=== PATIENT | male | born 1955 | race Caucasian/White ===

== ENCOUNTER 2017-07-30 13:00 | Emergency (ER) | payer BC ==
[~2017-07-30] VITALS: Ht 170.2 cm; Wt 74.9 kg
[2017-07-30 13:06] VITALS: BP 160/97; PULSE 91; TEMP 37; O2SAT 96; Ht 170.2 cm; Wt 74.9 kg
--- NOTE | 2017-07-30 17:33 | EMERGENCY ROOM VISIT NOTE ---
ED Visit Note First contact with patient: 13:08 CHIEF COMPLAINT: Tick bite. HISTORY OF PRESENT ILLNESS: Mr. Skelton is a 62-year-old white male who ambulates into the ED complaining of a tick bite on the right lower leg. Patient reports last night before bedtime he noted some pain on the right lower leg but did not inspect the area. Today when he woke up this morning the pain was still there and when he was showering he felt something on his leg. He looked at the area and noted a non-engorged tick in his skin. [place] and checks his self every night and the night before last he did not note any tick bites on his legs. He reports this tick was easily removed and his pain has subsequently resolved. He presents to the ED today for check of his wound and to make sure that he was able to remove all of the tick. Currently he is asymptomatic and denies any associated fevers, chills, sweats, skin eruptions, skin color changes, joint pains, chest pains, decreased appetite , nausea/vomiting, headaches. REVIEW OF SYSTEMS: As previously noted in History of Present Illness; at least 8 body systems are reviewed with the patient and found to be negative unless noted above otherwise. PMH: Psoriasis, unspecified left arm surgery. CURRENT MEDICATION: Patient denies. ALLERGIES TO MEDICATION: Patient denies. SOCIAL HISTORY: Patient is currently employed; he feels safe in his home environment; he admits to tobacco and alcohol use. TETANUS IMMUNIZATION STATUS: Patient reports up-to-date. PHYSICAL EXAM: Vital Signs: Date Time Temp Pulse Resp B/P (MAP) Pulse Ox O2 Delivery O2 Flow Rate FiO2 07/30/17 13:06 37.0 91 18 160/97 96 Room Air General: 62-year-old white male in no acute distress, nontoxic-appearing, afebrile and hemodynamically stable. Neurological: Awake, alert and oriented 3. Answering questions appropriately and following commands. Skin: Warm, dry and pink. On the anterior aspect of the right lower leg patient has a small area of erythema and ecchymosis. When examined no tick remnants are present. There is no lymphangitis and the skin does not appear cellulitic. ED COURSE: Patient is assessed as noted above. Patient's medication list was reviewed. Patient was educated about today's findings and instructed on his treatment plan ; he verbalized understanding and agreement with this plan. CLINICAL IMPRESSION: Tick bite. DISPOSITION: Patient discharged home in stable condition; prior to departure he was reassessed and remained pain and asymptomatic. PLAN: Wound care, signs of infection and signs of Lyme's disease were discussed with the patient. Patient was encouraged to follow-up with his PCP or return to the ED for any signs of infection or Lyme's disease.
== END 2017-07-30 13:47 | disposition home or self-care (01) ==
LOC: C.EDB 13:02 → C.EDD 13:47
DX: S80.861A Insect bite (nonvenomous), right lower leg, initial encounter (principal); W57.XXXA Bitten or stung by nonvenomous insect and other nonvenomous arthropods, initial encounter; Z72.0 Tobacco use

== ENCOUNTER 2020-04-19 15:22 | Observation (INO) ==
[2020-04-19] MEDS: SODIUM CHLORIDE 0.9% 1000ML 1,000 ML IV SCH (16:29)
[2020-04-19 16:49] LABS: Basophils # (auto) 0.04 K/uL (0-0.2); Basophils % (auto) 0.5 %; Eosinophils # (auto) 0.09 K/uL (0-0.5); Eosinophils % (auto) 1.2 %; Hematocrit (blood only) 50.1 % (42-52); Hemoglobin 17.3 g/dL (14.0-18.0); Immature Granulocytes # (auto) 0.01 K/uL (0.00-0.02); Immature Granulocytes % (auto) 0.1 %; Lymphocytes # (auto) 1.44 K/uL (1.2-3.4); Lymphocytes % (auto) 19.1 %; Mean Corpuscular Hgb Conc 34.5 g/dL (32-36); Mean Corpuscular Volume 95.4 fL (80-100); Mean Platelet Volume 10.8 fL (7.4-10.4); Monocytes % (auto) 9.3 %; Neutrophils # (auto) 5.26 K/uL (1.4-6.5); Neutrophils % (auto) 69.8 %; Platelet Count 201 K/uL (130-400); RDW Coefficient of Variation 12.8 % (11.5-14.5); RDW Standard Deviation 44.5 fL (36.4-46.3); Red Blood Count 5.25 M/uL (4.7-6.1); White Blood Count 7.54 K/uL (4.8-10.8)
[2020-04-19 17:05] LABS: Alanine Aminotransferase 32 U/L (12-78); Aspartate Aminotransferase 16 U/L (15-37); BUN Creatinine Ratio 12.5 (10-20); Blood Urea Nitrogen 17 mg/dl (7-18); Calcium 8.8 mg/dl (8.5-10.1); Carbon Dioxide 28 mmol/L (21-32); Chloride 109 mmol/L (98-107); Creatinine Clr Calc Pharmacy 52.8 ml/min; Est GFR (African American) 64.9; Glucose 94 mg/dl (70-99); Magnesium 2.5 mg/dl (1.8-2.4); Potassium 4.1 mmol/L (3.5-5.1); Sodium 140 mmol/L (136-145)
[2020-04-19 17:06] LABS: Partial Thromboplastin Ratio 0.9; Partial Thromboplastin Time 25.6 Seconds (21.0-31.0); Prothrombin Time 10.5 Seconds (9.0-12.0)
[2020-04-19 17:10] LABS: Albumin Globulin Ratio 1.1 (0.9-2); Alkaline Phosphatase 71 U/L (45-117); Bilirubin,Total 0.6 mg/dl (0.2-1); Globulin 3.7 gm/dl (2.5-4.0); Total Protein 7.7 gm/dl (6.4-8.2); Troponin I < 0.015 ng/ml (0-0.045)
[2020-04-19] MEDS ORDERED: LABETALOL HCL IV 5 MG/ML 20ML IV STA (17:14)
[2020-04-19] MEDS ORDERED: OPTIRAY 320 125ml IV ONE (18:06)
--- NOTE | 2020-04-19 18:19 | CT Scan Report ---
CT OF THE HEAD WITHOUT CONTRAST CLINICAL HISTORY: Stroke Like Symptoms COMPARISON STUDY: No previous studies for comparison. CT DOSE: TECHNIQUE: Helical axial images of the head were obtained without IV contrast. Automated exposure con trol was utilized for the study. A dose lowering technique was utilized adhering to the principles o f ALARA. FINDINGS: No acute intracranial hemorrhage, midline shift or mass effect is present. The ventricular system is unremarkable. Mild white matter hypodensities favor small vessel disease. The basal cistern s are patent. No extra-axial collections are present. There are no findings to suggest acute dural si nus thrombosis or acute territorial infarct. No significant calvarial abnormalities are present. Visu alized portions of the sinuses and mastoid air cells are clear. IMPRESSION: No acute intracranial findings. ACT 112: Negative or not required by law. Electronically signed by: Geovany Hernández M.D. 04/19/2020 6:17 PM
--- NOTE | 2020-04-19 18:27 | CT Scan Report ---
CT ANGIOGRAPHY OF THE NECK WITH CONTRAST CLINICAL HISTORY: Stroke Like Symptoms COMPARISON STUDY: No previous studies for comparison. Technique: CT angiography of the carotid and vertebral arteries was obtained using UMicIt 320 IV and 3D reconstruction on an independent workstation. NASCET criteria was utilized. Automated exposure c ontrol was utilized for the study. A dose lowering technique was utilized adhering to the principles of ALARA. CT DOSE: 1094.39 mGy.cm Findings: The bilateral common carotid and cervical internal carotid arteries are patent. There is mi ld plaque within the proximal right internal carotid artery. This results in no stenosis. No dissecti on within the major vessels of the neck is noted. The left vertebral artery is dominant. There is mod erate to severe stenosis at the origin of the left vertebral artery. 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 This vessel is patent. CTA of the head will be reported separately. Lung apices are clear. There is no cervical lymphadenopathy. No acute cervical spine fracture is present. IMPRESSION: 1. No stenosis within the bilateral common carotid and cervical internal carotid arteries. 2. Moderate to severe stenosis at the origin of the left vertebral artery. Dominant left vertebral ar annie. Diminutive right vertebral artery. ACT 112: Negative or not required by law. Electronically signed by: Geovany Hernández M.D. 04/19/2020 6:26 PM
--- NOTE | 2020-04-19 18:34 | CT Scan Report ---
CTA ANGIOGRAPHY OF THE HEAD CLINICAL HISTORY: Stroke Like Symptoms. COMPARISON STUDY: No previous studies for comparison. TECHNIQUE: Helical axial images of the head were obtained following uneventful intravenous administr ation of 117 cc of Optiray 320. Sagittal and coronal reconstructions were viewed as well as maximal i ntensity projections on an independent 3-D workstation. Automated exposure control was utilized for the study. A dose lowering technique was utilized adhering to the principles of ALARA. FINDINGS: The bilateral M1 and M2 segments are patent. The bilateral A1 segments are patent. There is multifocal occlusion of the right A2 segment. There is moderate to severe stenosis of the left A2 se gment. The posterior circulation is largely supplied by the anterior circulation with persisten ce of the left posterior cerebral artery and a large right posterior communicating artery. Note is ma de of occlusion with distal reconstitution versus severe short segment stenosis with of the right pos terior cerebral artery shown on axial image 78 of 250. In addition, there is moderate stenosis of the more proximal aspect of this vessel. Note is made of severe stenosis of the left posterior cerebral artery. No acute intracranial hemorrhage is present. Brain volume is normal. Ventricular system is no rmal. Basilar cisterns are patent. 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 There is no in tracranial aneurysm. There is moderate stenosis of the basilar artery. IMPRESSION: 1. 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 This finding is age indeterminate and may be acute. 2. Occlusion versus severe short segment stenosis of the right posterior cerebral artery. Severe sten osis of the left posterior cerebral artery. 3. Moderate stenosis of the basilar artery. ACT 112: Negative or not required by law. Electronically signed by: Geovany Hernández M.D. 04/19/2020 6:33 PM
[2020-04-19] MEDS ORDERED: ASPIRIN CHEW 324 MG PO STA (19:00)
--- NOTE | 2020-04-19 20:05 | History & Physical Report ---
Date of Service April 19, 2020 Assessment & Plan (1) Fall: (2) Left leg weakness: 65-year-old male with a history of ORIF and high cholesterol levels seen in the emergency department for isolated left leg weakness and admitted for stroke work-up. 1. Left leg weakness/stroke work-up Head and neck CTA showing multiple areas of stenosis in the anterior and posterior cerebral arteries and vertebral and basilar arteries. MRI head without contrast pending to evaluate for central area of stroke not apparent on CTs. Patient most likely has peripheral arterial disease and could have stenosis or blockage of left iliac versus femoral arteries. Consider CTA left lower extremity 24 hours after head/neck CTA. Pulses poor but intact at feet bilaterally Cholesterol elevated at 271, triglycerides elevated at 289. Patient started on 40 mg atorvastatin and daily aspirin. A1c pending Fall precautions given left leg weakness Hypertension Status post 10 mg IV labetalol in ED Allow for permissive hypertension in setting of high-grade stenosis of multiple cerebral arteries No concern for hypertensive urgency at this time BMP in a.m. DVT prophylaxis: Subcu Lovenox FEN/GI: N.p.o. pending MRI read CODE STATUS: Full code Dispo: MedSurg; likely home with home health pending PT History of Present Illness Patient is a 65-year-old male with past medical history of ORIF presented to the emergency department this evening with complaints of left lower extremity weakness and fall. He states that this morning he felt like his left leg was not moving as well as his right and felt "heavier" than the other one. States that he was trying to walk he would frequently run into the edges of tables of the bed with his left side and when standing would lean towards the left because it felt unstable. He did note that while he was with one of his coworkers he fell to the left and did not hit his head was able to catch himself on his hands. He denies any previous episodes of isolated leg weakness, heart attack, stroke, TIA. He states he has gotten yearly blood work with his PCP for his job but has never been on medication for high blood pressure, diabetes or high cholesterol. He does note that his cholesterol was elevated last time he had it checked. Patient denies a history of cigarette or cigar use but does say that he has chewed tobacco since he was very young. Family history significant for father and grandfather who had strokes and heart disease. Father had a heart attack at the age of 42. Patient also has a niece appear to have early onset uncontrolled diabetes and from it at the age of 20. Patient denies any chest pressure or chest tightness at rest or with exertion. He states that when he is running up and down the stairs he will get somewhat short of breath but does not experience any chest pain or chest tightness during those episodes. ED course significant for receiving 10 mg of IV labetalol for elevated blood pressures and a one-time 325 mg dose of aspirin. CT negative for any acute intracranial abnormalities. Head and neck CTA significant for moderate to severe left vertebral artery stenosis, multifocal stenosis of the right anterior cerebral artery, occlusion versus stenosis of the right posterior cerebral artery, severe stenosis of the left posterior cerebral artery, moderate stenosis of the basilar artery. MRI without contrast of head pending. Primary Care Provider: Dm Olson, ALEKSANDAR, MARIN Allergies Allergy/AdvReac Type Severity Reaction Status Date / Time No Known Allergies Allergy Unknown NONE Unverified 04/19/20 19:16 Home Medications Medication Instructions Recorded Confirmed Type No Known Home Medications 03/06/19 04/19/20 History amlodipine 5 mg PO DAILY #30 tab 04/20/20 Rx aspirin 81 mg PO QAM #30 tab 04/20/20 Rx atorvastatin 40 mg PO QAM #30 tab 04/20/20 Rx Past Med/Surg History Surgical History History of open reduction and internal fixation (ORIF) procedure humerus Family History (Updated 04/19/20 @ 20:53 by Moriah Mabry MD) Father Obesity Heart disease Stroke Myocardial infarction Peripheral vascular disease Grandfather Peripheral vascular disease Social History (Updated 04/19/20 @ 20:53 by Moriah Mabry MD) Smoking Status: Never smoker Tobacco Type: Smokeless Tobacco (Dip or Chew) Age Started Using Tobacco: 12; Second Hand Exposure: No; Hx Alcohol Use: Yes Alcohol type: beer Hx Substance Use: No Preferred Language: Kinyarwanda Communication Ability: Effective Block Engraver Required: No Beliefs That Will Affect Care: None marital status: Current Living Situation: Spouse Feels Safe at Home: Yes caffeine: Yes Assistive Devices: Glasses Review of Systems Constitutional: no fever, no chills and no body aches Respiratory: no cough, no dyspnea and no pain on inspiration Cardiovascular: no chest pain, no chest pain with activity, no dyspnea on exertion, no palpitations, no lightheadedness, no syncope, no edema and no claudication Gastrointestinal: no abdominal pain, no nausea, no vomiting, no cramping, no constipation and no diarrhea/loose stools Musculoskeletal: + muscle weakness (left lower extremity) Neurologic: + gait abnormality, + falls, + localized weakness and + numbness; no tingling, no paresthesia and no radiating pain Physical Exam Physical Exam: Constitutional: in no apparent distress, laying comfortably in bed,. not ill appearing Eyes: EOMI, pupils equal and reactive bilaterally, no scleral icterus Cardiac: RRR, no murmurs, gallops or rubs. Normal S1, S2 Pulm: CTA BL, no wheezes, rhonchi, crackles or rubs, moving air well throughout both lungs on room air Abd: soft, nontender, nondistended, hyperactive bowel sounds, no rebound or guarding Extremities: no edema, 1+ L PT pulse, poor DP pulse. 1+ DP pulse on right, poor PT pulse. Neuro: no focal deficits, moving all 4 limbs, A&Ox3, strength 5/5 at all major joints. - Cranial Nerve exam Pupils equally responsive to light bilaterally extraocular muscle movement intact w/o focal weakness or abnormality facial sensation intact, able to close eyes and puff cheeks against resistance mildly decreased hearing in L ear otherwise hearing intact able to swallow w/o issue, shrug shoulders and uvula midline. Results & Data Results & Data ([facility]) Vital Signs (Past 12 Hours) Vital Signs Temp Pulse Pulse Resp BP BP Pulse Ox 04/19/20 19:40 94 H 16 167/102 H 98 04/19/20 18:00 78 21 182/112 H 98 04/19/20 17:50 75 22 98 04/19/20 17:40 77 22 98 04/19/20 17:31 74 21 98 04/19/20 17:30 72 22 176/111 H 98 04/19/20 17:23 76 22 185/137 H 99 04/19/20 17:20 76 22 98 04/19/20 17:11 74 14 183/124 H 99 04/19/20 17:10 77 75 19 183/124 H 99 04/19/20 17:00 76 22 04/19/20 16:50 79 22 04/19/20 16:40 79 16 04/19/20 16:33 94 H 21 211/124 H 04/19/20 15:28 36.5 C 89 20 193/109 H 99 Laboratory Results WBC 7.54 K/uL (4.8-10.8) 04/19/20 16:32 RBC 5.25 M/uL (4.7-6.1) 04/19/20 16:32 Hgb 17.3 g/dL (14.0-18.0) 04/19/20 16:32 Hct 50.1 % (42-52) 04/19/20 16:32 MCV 95.4 fL (80-100) 04/19/20 16:32 MCH 33.0 pg (25-34) 04/19/20 16:32 MCHC 34.5 g/dL (32-36) 04/19/20 16:32 RDW Std Deviation 44.5 fL (36.4-46.3) 04/19/20 16:32 RDW Coeff of Debbie 12.8 % (11.5-14.5) 04/19/20 16:32 Plt Count 201 K/uL (130-400) 04/19/20 16:32 MPV 10.8 fL (7.4-10.4) H 04/19/20 16:32 Immature Gran % (Auto) 0.1 % 04/19/20 16:32 Neut % (Auto) 69.8 % 04/19/20 16:32 Lymph % (Auto) 19.1 % 04/19/20 16:32 Ashe % (Auto) 9.3 % 04/19/20 16:32 Eos % (Auto) 1.2 % 04/19/20 16:32 Baso % (Auto) 0.5 % 04/19/20 16:32 Neut # (Auto) 5.26 K/uL (1.4-6.5) 04/19/20 16:32 Lymph # (Auto) 1.44 K/uL (1.2-3.4) 04/19/20 16:32 Ashe # (Auto) 0.70 K/uL (0.11-0.59) H 04/19/20 16:32 Eos # (Auto) 0.09 K/uL (0-0.5) 04/19/20 16:32 Baso # (Auto) 0.04 K/uL (0-0.2) 04/19/20 16:32 Immature Gran # (Auto) 0.01 K/uL (0.00-0.02) 04/19/20 16:32 PT 10.5 Seconds (9.0-12.0) 04/19/20 16:32 INR 1.0 (0.9-1.1) 04/19/20 16:32 APTT 25.6 Seconds (21.0-31.0) 04/19/20 16:32 PTT Ratio 0.9 04/19/20 16:32 Sodium 140 mmol/L (136-145) 04/19/20 16:32 Potassium 4.1 mmol/L (3.5-5.1) 04/19/20 16:32 Chloride 109 mmol/L (98-107) H 04/19/20 16:32 Carbon Dioxide 28 mmol/L (21-32) 04/19/20 16:32 Anion Gap 3.0 (3-11) 04/19/20 16:32 BUN 17 mg/dl (7-18) 04/19/20 16:32 Creatinine 1.34 mg/dl (0.6-1.4) 04/19/20 16:32 Est Cr Clr Drug Dosing 52.8 ml/min 04/19/20 16:32 Est GFR ( Amer) 64.9 04/19/20 16:32 Est GFR (Non-Af Amer) 56.0 04/19/20 16:32 BUN/Creatinine Ratio 12.5 (10-20) 04/19/20 16:32 Glucose 94 mg/dl (70-99) 04/19/20 16:32 Calcium 8.8 mg/dl (8.5-10.1) 04/19/20 16:32 Magnesium 2.5 mg/dl (1.8-2.4) H 04/19/20 16:32 Total Bilirubin 0.6 mg/dl (0.2-1) 04/19/20 16:32 AST 16 U/L (15-37) 04/19/20 16:32 ALT 32 U/L (12-78) 04/19/20 16:32 Alkaline Phosphatase 71 U/L (45-117) 04/19/20 16:32 Troponin I < 0.015 ng/ml (0-0.045) 04/19/20 16:32 Total Protein 7.7 gm/dl (6.4-8.2) 04/19/20 16:32 Albumin 4.0 gm/dl (3.4-5.0) 04/19/20 16:32 Globulin 3.7 gm/dl (2.5-4.0) 04/19/20 16:32 Albumin/Globulin Ratio 1.1 (0.9-2) 04/19/20 16:32 Triglycerides 289 mg/dl (0-150) H 04/19/20 16:32 Cholesterol 271 mg/dl (0-200) H 04/19/20 16:32 LDL Cholesterol, Calc 149 mg/dl 04/19/20 16:32 VLDL Cholesterol, Calc 58 mg/dl 04/19/20 16:32 HDL Cholesterol 64 mg/dl 04/19/20 16:32 Cholesterol/HDL Ratio 4 04/19/20 16:32 COVID-19 Eval Order Cov[facility] 04/19/20 17:12 SARS-CoV-2, RNA, NAAT NEGATIVE (NEGATIVE) 04/19/20 17:12 CT head:No acute intracranial findings. CTA head: 1. 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 This finding is age indeterminate and may be acute. 2. Occlusion versus severe short segment stenosis of the right posterior cerebral artery. 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 3. Moderate stenosis of the basilar artery. CTA neck: 1. No stenosis within the bilateral common carotid and cervical internal carotid arteries. 2. Moderate to severe stenosis at the origin of the left vertebral artery. Dominant left vertebral artery. Diminutive right vertebral artery. Supervising Physician Co-Signing Physician Notes Attending addendum: I have physically seen this patient, have supervised the medical residents activities, and agree with the H&P unless as otherwise noted. Assessment and Plan: Left leg weakness/strokelike symptoms- CT head negative for acute stroke. CTA head neck with significant narrowings of right anterior cerebral and posterior cerebral arteries, left posterior cerebral artery and moderate stenosis of basilar artery. Admit to monitored bed with CVA without TPA protocol order set. Order MRI brain without contrast Order echocardiogram Aspirin 81 mg daily Consult PT/OT/neurology. Hypertension- Permissive hypertension overnight. He did receive labetalol 10 mg IV x1 in the ED Remaining orders and notations as noted Resident Activity Tracking Resident Involvement: Resident Care Provided Care Provided: Adult [facility]
[2020-04-19] MEDS ORDERED: ONDANSETRON INJ 2 MG/ML 2 ML VIAL IV PRN (20:28)
[2020-04-19] MEDS ORDERED: ACETAMINOPHEN 325 MG TAB PO PRN (20:28)
[2020-04-19] MEDS ORDERED: MAGNESIUM HYDROXIDE SUSP 30 ML UDC PO PRN (20:28)
[2020-04-19] MEDS ORDERED: POLYETHYLENE (MIRALAX) 17 GM PACK PO PRN (20:28)
[2020-04-19 20:58] LABS: Chol HDL Ratio 4; Cholesterol 271 mg/dl (0-200); HDL Cholesterol 64 mg/dl; LDL Cholesterol Calculated 149 mg/dl; Triglycerides 289 mg/dl (0-150); VLDL Cholesterol 58 mg/dl
[2020-04-19] MEDS ORDERED: ENOXAPARIN INJ 40 MG/0.4 ML SYR SQ SCH (22:00)
[2020-04-20 06:04] LABS: Estimated Average Glucose 91 mg/dl; Hemoglobin A1C 4.8 % (4.5-5.6)
[2020-04-20 07:07] LABS: BUN Creatinine Ratio 12.1 (10-20); Calcium 8.5 mg/dl (8.5-10.1); Creatinine Clr Calc Pharmacy 69.3 ml/min; Est GFR (African American) 90.2; Est GFR (Non-African American) 77.9; Potassium 3.7 mmol/L (3.5-5.1)
--- NOTE | 2020-04-20 07:15 | Magnetic Resonance Report ---
MRI OF THE BRAIN WITHOUT CONTRAST CLINICAL HISTORY: Left leg weakness. COMPARISON STUDY: Head CT and CTA of the head performed earlier today. TECHNIQUE: Utilizing a 1.5 Nubia magnet and dedicated coil, multiplanar, multiecho imaging of the bra in was performed without IV contrast. FINDINGS: There are multiple small foci of restricted diffusion within the right anterior cerebral ar annie distribution. These represent acute infarcts given hypointensity on the ADC map. These are locat ed within the medial right frontal lobe as well as a few punctate foci within the right parietal lobe . There is no mass effect. No hemorrhage. Ventricular system is normal. Basal cisterns are patent. Th ere is mild atrophy. White matter hypodensities represent small vessel disease. Calvarial signal is n ormal. IMPRESSION: Multiple acute infarcts within the right anterior cerebral artery distribution which acc ount for the patient's symptoms. No acute hemorrhage. No mass effect. ACT 112: Negative or not required by law. Electronically signed by: Geovany Hernández M.D. 04/20/2020 7:13 AM
--- NOTE | 2020-04-20 08:21 | Neurology Consultation ---
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 Multifocal occlusion of the A2 segment of the right anterior cerebral artery noted on CT angiography. Severe stenosis noted of both the right and left posterior cerebral arteries, moderate stenosis of the basilar artery, and severe stenosis of the origin of the left vertebral artery identified as well. Stroke risk factors for this patient include hyperlipidemia and chewing tobacco use. His blood pressure is also notably elevated during this hospitalization although he appeared to have normal blood pressure readings in February 2019 in July 2019. Follow-up the results of transthoracic echocardiogram. Agree with initiation of daily low-dose aspirin and atorvastatin. I did discuss the importance of cessation of chewing tobacco with the patient. He will need ongoing follow-up with his primary care physician for monitoring of cardiovascular risk factors. May also need to consider a larger dosage of atorvastatin, depending on his response to this medication. Would also consider obtaining a 30-day cardiac event monitor. No further immediate recommendations. History of Present Illness Reason for Consultation: Stroke Requesting Physician: Rodney Ann DO Attending Physician: Rdoney Ann DO History of Present Illness The patient is a 65-year-old male who presented to the emergency department last night for further evaluation and management of left lower extremity weakness and a fall. He had remarked that his left leg had felt heavy and weak earlier that morning and that he had been having a tendency to list or lean to the left with standing and walking. He apparently had a minor fall to the left that was witnessed by one of his coworkers although he did not hit his head. A CT of the head was negative for hemorrhage or acute process. A CT angiogram of the head revealed multifocal occlusion of the A2 segment of the right anterior cerebral artery, age indeterminate although possibly acute. There was also evidence of occlusion versus severe short segment stenosis of the right posterior cerebral artery and severe stenosis of the left posterior cerebral artery. Moderate stenosis of the basilar artery was also seen. CT angiography of the neck was negative for stenoses of either common carotid or cervical internal carotid arteries. There was moderate to severe stenosis at the origin of the left vertebral artery with a diminutive right vertebral artery. MRI of the brain reveals multiple acute infarcts within the right anterior cerebral artery distribution. No hemorrhage or mass-effect. These findings were observed by the interpreting radiologist. I reviewed the images as well and agree. The patient did have a primary care visit in July 2019 to establish care. He was noted to have a modestly elevated cholesterol level on some previous lab work. It looks like some dietary modifications were discussed as well as participation in cardiovascular exercise. He has not been taking any prescription medications. His blood pressure was notably elevated during his emergency department assessment yesterday. The emergency department clinical note is not available at this time. The admission history and physical examination has been reviewed. This morning, the patient continues to report a mild feeling of weakness or heaviness affecting the left lower extremity with a tendency to list to the left side while ambulating with assistance. He denies any difficulty with the upper extremities. He complains of a low-grade frontal headache. No change in vision, speech or swallowing. Allergies Allergy/AdvReac Type Severity Reaction Status Date / Time No Known Allergies Allergy Unknown NONE Unverified 04/19/20 19:16 Home Medications Medication Instructions Recorded Confirmed Type No Known Home Medications 03/06/19 04/19/20 History Patient History Surgical History History of open reduction and internal fixation (ORIF) procedure humerus Family History (Updated 04/19/20 @ 20:53 by Moriah Mabry MD) Father Obesity Heart disease Stroke Myocardial infarction Peripheral vascular disease Grandfather Peripheral vascular disease Social History (Updated 04/19/20 @ 20:53 by Moriah Mabry MD) Smoking Status: Never smoker Tobacco Type: Smokeless Tobacco (Dip or Chew) Age Started Using Tobacco: 12; Second Hand Exposure: No; Do You Dip or Chew Tobacco: Yes (2 cans/week); Tobacco Cessation Education Requested by Patient: No Hx Alcohol Use: Yes Alcohol type: beer Hx Substance Use: No Preferred Language: Latvian Communication Ability: Effective Boom Conveyor Operator Required: No Beliefs That Will Affect Care: None marital status: Current Living Situation: Spouse Other Information That Helps Us Care for You: No Feels Safe at Home: Yes Safety Concerns: Feels Safe At This Time caffeine: Yes Assistive Devices: Glasses Review of Systems Review of Systems: All systems reviewed & are unremarkable except as noted in HPI & below Neurologic: as per Subjective / HPI, + gait abnormality and + localized weakness Exam (Neuro) Neurologic: Oriented to:: Person, Place and Time Memory: Short Term Intact and Remote Intact Attention: Span Intact and Concentration Intact Speech Fluency: negative Dysarthria Speech Aphasia: negative Aphasia Fund of Knowledge: Current Events, Past History and Vocabulary Cranial Nerves: Normal II, III, IV, , V, VII, VIII, IX, X, XI and XII Motor Strength: Normal Lower Extremities and Normal Upper Extremities Motor Tone: Normal Lower Extremities and Normal Upper Extremities Muscle Bulk/Involuntary Movements: No Involuntary Movements Sensation: Light Touch Intact, Pain/Temperature Intact, Vibration Intact and Proprioception Intact Coordination: Heel-Diop Abnormal Laterality: Left; negative Dysdiadochokinesia and Finger-Nose Abnormal Deep Tendon Reflexes: Rt Triceps: 2+, Lt Triceps: 2+, Rt Biceps: 2+, Lt Biceps: 2+, Rt Brachioradialis: 2+, Lt Brachioradialis: 2+, Rt Patellar: 2+, Lt Patellar: 3+, Rt Ankle: 2+ and Lt Ankle: 3+ Special Tests: Babinski Present (left) Gait: Hemiparetic Laterality: Left Results & Data ([facility]) Vital Signs (Past 12 Hours) Vital Signs Temp Pulse Pulse Resp BP BP BP 04/20/20 07:25 36.6 C 75 18 148/49 H 04/20/20 02:52 36.6 C 72 16 162/103 H 04/19/20 23:02 36.3 C L 75 18 203/118 H 200/116 H 04/19/20 22:03 69 16 171/101 H 04/19/20 21:00 84 16 172/110 H Pulse Ox 04/20/20 07:25 97 04/20/20 02:52 98 04/19/20 23:02 97 04/19/20 22:03 99 04/19/20 21:00 99 Laboratory Results WBC 7.54, hemoglobin 17.3, hematocrit 50.1, platelet count 201, sodium 141, potassium 3.7, BUN 12, creatinine 1.02, glucose 92, hemoglobin A1c 4.8, calcium 8.5, magnesium 2.5, AST 16, ALT 32, troponin less than 0.015, triglycerides 289, cholesterol 271, LDL 149, VLDL 58, HDL 64 Diagnostic Findings Imaging including CT of the head, CT angiography of the head and neck, and brain MRI are as described in the history of present illness. Electrocardiogram reveals normal sinus rhythm, 77 bpm. PG Care Time/CCT Total # of Minutes Spent Total Time Spent with Patient: Total time spent is greater than 50% in coordination of care (as documented) at patient's floor/unit and/or counseling patient: 70 minutes. Coding Level of Care Code 20989 Office/OBS Consult Lvl 5 Diagnoses Acute ischemic right EDYTA stroke I63.521
--- NOTE | 2020-04-20 08:21 | Hospitalist Progress Note ---
Date of Service April 20, 2020 Assessment & Plan (1) Fall: (2) Left leg weakness: 65-year-old male with a history of ORIF and high cholesterol levels seen in the emergency department for isolated left leg weakness and admitted for stroke work-up. 1. Left leg weakness/stroke work-up Head and neck CTA showing multiple areas of stenosis in the anterior and posterior cerebral arteries and vertebral and basilar arteries. MRI head without contrast pending to evaluate for central area of stroke not apparent on CTs. Patient most likely has peripheral arterial disease and could have stenosis or blockage of left iliac versus femoral arteries. Consider CTA left lower extremity 24 hours after head/neck CTA. Pulses poor but intact at feet bilaterally Cholesterol elevated at 271, triglycerides elevated at 289. Patient started on 40 mg atorvastatin and daily aspirin. A1c pending Fall precautions given left leg weakness Hypertension Status post 10 mg IV labetalol in ED Allow for permissive hypertension in setting of high-grade stenosis of multiple cerebral arteries No concern for hypertensive urgency at this time BMP in a.m. DVT prophylaxis: Subcu Lovenox FEN/GI: N.p.o. pending MRI read CODE STATUS: Full code Dispo: MedSurg; likely home with home health pending PT Admission and Anticipated Discharge Date Admission Date: April 19, 2020 Results & Data Results & Data ([facility]) Vital Signs (Past 12 Hours) Vital Signs Temp Pulse Pulse Resp BP BP BP 04/20/20 07:25 36.6 C 75 18 148/49 H 04/20/20 02:52 36.6 C 72 16 162/103 H 04/19/20 23:02 36.3 C L 75 18 203/118 H 200/116 H 04/19/20 22:03 69 16 171/101 H 04/19/20 21:00 84 16 172/110 H Pulse Ox 04/20/20 07:25 97 04/20/20 02:52 98 04/19/20 23:02 97 04/19/20 22:03 99 04/19/20 21:00 99 Laboratory Results Laboratory Results - last 24 hr 04/19/20 04/19/20 04/19/20 16:32 16:32 16:32 WBC 7.54 RBC 5.25 Hgb 17.3 Hct 50.1 MCV 95.4 MCH 33.0 MCHC 34.5 RDW Std Deviation 44.5 RDW Coeff of Debbie 12.8 Plt Count 201 MPV 10.8 H Immature Gran % (Auto) 0.1 Neut % (Auto) 69.8 Lymph % (Auto) 19.1 [place] % (Auto) 9.3 Eos % (Auto) 1.2 Baso % (Auto) 0.5 Neut # (Auto) 5.26 Lymph # (Auto) 1.44 [place] # (Auto) 0.70 H Eos # (Auto) 0.09 Baso # (Auto) 0.04 Immature Gran # (Auto) 0.01 PT 10.5 INR 1.0 APTT 25.6 PTT Ratio 0.9 Sodium 140 Potassium 4.1 Chloride 109 H Carbon Dioxide 28 Anion Gap 3.0 BUN 17 Creatinine 1.34 Est Cr Clr Drug Dosing 52.8 Est GFR ( Amer) 64.9 Est GFR (Non-Af Amer) 56.0 BUN/Creatinine Ratio 12.5 Glucose 94 Estimat Average Glucose Hemoglobin A1c Calcium 8.8 Magnesium 2.5 H Total Bilirubin 0.6 AST 16 ALT 32 Alkaline Phosphatase 71 Troponin I < 0.015 Total Protein 7.7 Albumin 4.0 Globulin 3.7 Albumin/Globulin Ratio 1.1 Triglycerides Cholesterol LDL Cholesterol, Calc VLDL Cholesterol, Calc HDL Cholesterol Cholesterol/HDL Ratio COVID-19 Eval Order SARS-CoV-2, RNA, NAAT 04/19/20 04/19/20 04/19/20 16:32 16:32 17:12 WBC RBC Hgb Hct MCV MCH MCHC RDW Std Deviation RDW Coeff of Debbie Plt Count MPV Immature Gran % (Auto) Neut % (Auto) Lymph % (Auto) [place] % (Auto) Eos % (Auto) Baso % (Auto) Neut # (Auto) Lymph # (Auto) [place] # (Auto) Eos # (Auto) Baso # (Auto) Immature Gran # (Auto) PT INR APTT PTT Ratio Sodium Potassium Chloride Carbon Dioxide Anion Gap BUN Creatinine Est Cr Clr Drug Dosing Est GFR ( Amer) Est GFR (Non-Af Amer) BUN/Creatinine Ratio Glucose Estimat Average Glucose 91 Hemoglobin A1c 4.8 Calcium Magnesium Total Bilirubin AST ALT Alkaline Phosphatase Troponin I Total Protein Albumin Globulin Albumin/Globulin Ratio Triglycerides 289 H Cholesterol 271 H LDL Cholesterol, Calc 149 VLDL Cholesterol, Calc 58 HDL Cholesterol 64 Cholesterol/HDL Ratio 4 COVID-19 Eval [facility] SARS-CoV-2, RNA, NAAT 04/19/20 04/20/20 17:12 05:40 WBC RBC Hgb Hct MCV MCH MCHC RDW Std Deviation RDW Coeff of Debbie Plt Count MPV Immature Gran % (Auto) Neut % (Auto) Lymph % (Auto) [place] % (Auto) Eos % (Auto) Baso % (Auto) Neut # (Auto) Lymph # (Auto) [place] # (Auto) Eos # (Auto) Baso # (Auto) Immature Gran # (Auto) PT INR APTT PTT Ratio Sodium 141 Potassium 3.7 Chloride 110 H Carbon Dioxide 27 Anion Gap 4.0 BUN 12 Creatinine 1.02 Est Cr Clr Drug Dosing 69.3 Est GFR ( Amer) 90.2 Est GFR (Non-Af Amer) 77.9 BUN/Creatinine Ratio 12.1 Glucose 92 Estimat Average Glucose Hemoglobin A1c Calcium 8.5 Magnesium Total Bilirubin AST ALT Alkaline Phosphatase Troponin I Total Protein Albumin Globulin Albumin/Globulin Ratio Triglycerides Cholesterol LDL Cholesterol, Calc VLDL Cholesterol, Calc HDL Cholesterol Cholesterol/HDL Ratio COVID-19 Eval Order SARS-CoV-2, RNA, NAAT NEGATIVE Medications Administered Current Inpatient Medications Acetaminophen (Acetaminophen 325 Mg Tab) 650 mg PO Q4H PRN PRN Reason: pain/fever Stop: 05/19/20 20:27 Aspirin (Aspirin 81 Mg Ectab) 81 mg PO QAM [facility] Stop: 05/20/20 08:59 Atorvastatin Calcium (Atorvastatin 40 Mg Tab) 40 mg PO QAM [facility] Stop: 05/20/20 08:59 Enoxaparin Sodium (Enoxaparin Inj 40 Mg/0.4 Ml Syr) 40 mg SQ Q24H [facility] Stop: 05/19/20 21:59 Last Admin: 04/19/20 23:46 Dose: 40 mg Documented by: Sodium Chloride (Nss 1000ml) 1,000 mls @ 50 mls/hr IV .Q20H [facility] Stop: 05/19/20 16:14 Last Admin: 04/19/20 16:29 Dose: 50 mls/hr Documented by: Magnesium Hydroxide (Magnesium Hydroxide Susp 30 Ml Udc) 30 ml PO Q6H PRN PRN Reason: Constipation Stop: 05/19/20 20:27 Ondansetron HCl (Ondansetron Inj 2 Mg/Ml 2 Ml Vial) 4 mg IV Q6H PRN PRN Reason: Nausea Stop: 05/19/20 20:27 Polyethylene Glycol (Polyethylene (Miralax) 17 Gm Pack) 17 gm PO DAILY PRN PRN Reason: Constipation Stop: 05/19/20 20:27 PG Care Time/CCT Total # of Minutes Spent Total Time Spent with Patient: Total time spent is greater than 50% in coordination of care (as documented) at patient's floor/unit and/or counseling patient: Coding Diagnoses Fall W19.XXXA Left leg weakness R29.898
[2020-04-20] MEDS ORDERED: ASPIRIN 81 MG ECTAB PO SCH (09:00)
[2020-04-20] MEDS ORDERED: ATORVASTATIN 40 MG TAB PO SCH (09:00)
--- NOTE | 2020-04-20 13:09 | XCELERA ---
[id number] [id number]
--- NOTE | 2020-04-20 13:10 | Electrocardiogram Report ---
Test Reason : Blood Pressure : / mmHG Vent. Rate : 077 BPM Atrial Rate : 077 BPM P-R Int : 124 ms QRS Dur : 084 ms QT Int : 378 ms P-R-T Axes : 063 041 036 degrees QTc Int : 427 ms Normal sinus rhythm Possible Left atrial enlargement Borderline ECG No previous ECGs available Confirmed by Igor Corcoran ([id number]) on 04/20/2020 1:10:36 PM Referred By: REFERRED SELF Confirmed By:Igor Corcoran
[2020-04-20] MEDS: SODIUM CHLORIDE 0.9% 1000ML 1,000 ML IV SCH (14:43)
--- NOTE | 2020-04-20 17:42 | Discharge Summary ---
Date of Service April 20, 2020 Admission HPI Per Admitting Provider Patient is a 65-year-old male with past medical history of ORIF presented to the emergency department this evening with complaints of left lower extremity weakness and fall. He states that this morning he felt like his left leg was not moving as well as his right and felt "heavier" than the other one. States that he was trying to walk he would frequently run into the edges of tables of the bed with his left side and when standing would lean towards the left because it felt unstable. He did note that while he was with one of his coworkers he fell to the left and did not hit his head was able to catch himself on his hands. He denies any previous episodes of isolated leg weakness, heart attack, stroke, TIA. He states he has gotten yearly blood work with his PCP for his job but has never been on medication for high blood pressure, diabetes or high cholesterol. He does note that his cholesterol was elevated last time he had it checked. Patient denies a history of cigarette or cigar use but does say that he has chewed tobacco since he was very young. Family history significant for father and grandfather who had strokes and heart disease. Father had a heart attack at the age of 42. Patient also has a niece appear to have early onset uncontrolled diabetes and from it at the age of 20. Patient denies any chest pressure or chest tightness at rest or with exertion. He states that when he is running up and down the stairs he will get somewhat short of breath but does not experience any chest pain or chest tightness during those episodes. ED course significant for receiving 10 mg of IV labetalol for elevated blood pressures and a one-time 325 mg dose of aspirin. CT negative for any acute intracranial abnormalities. Head and neck CTA significant for moderate to severe left vertebral artery stenosis, multifocal stenosis of the right anterior cerebral artery, occlusion versus stenosis of the right posterior cerebral artery, severe stenosis of the left posterior cerebral artery, moderate stenosis of the basilar artery. MRI without contrast of head pending. Primary Care Provider: Dm Olson, III, COSTUMER ASSISTANT Principal Diagnosis Acute Ischemic Right EDYTA Stroke Discharge Exam Constitutional WD/WN, vitals as above Respiratory normal respiratory effort, lungs clear to auscultation Cardiovascular RRR, no murmur, no edema Gastrointestinal (Abdomen) normal bowel sounds, soft, nontender, no hepatosplenomegaly Neurologic Grossly Normal with Left Lower extremity weakness Discharge Data Allergies Allergy/AdvReac Type Severity Reaction Status Date / Time No Known Allergies Allergy Unknown NONE Unverified 04/19/20 19:16 Consultations 04/19/20 19:23 ED Decision to Admit Stat 04/20/20 08:09 Consult Neurology Routine Ordered Studies 04/19/20 16:09 CT angio head w con Stat CT angio neck with con Stat CT head/brain wo con Stat 04/19/20 20:37 MR brain wo con Urgent Hospital Course (1) Acute ischemic right EDYTA stroke: 65-year-old male with a history of ORIF and high cholesterol levels seen in the emergency department for isolated left leg weakness and admitted for stroke work-up. 1. Final diagnosis with Acute Ischemic Right EDYTA Stroke Head and neck CTA showing multiple areas of stenosis in the anterior and posterior cerebral arteries and vertebral and basilar arteries. MRI head abnormal consistent with symptoms. ECHO completed with no obvious cause for CVA On discharge, Feeling well some difficulty with walking fading to the left. Referred to Home Health for Physical Therapy Outpatient Walker provided Ongoing work up with scheduled Event Monitor Follow up with Neurology Continue Aspirin Hypertension Status post 10 mg IV labetalol in ED Allow for permissive hypertension in setting of high-grade stenosis of multiple cerebral arteries No concern for hypertensive urgency at this time On discharge started on amlodipine 5 mg daily Recheck at Primary Care Hyperlipidemia: started on Atorvastatin 40 mg daily F/U labs for doing. (2) Fall: (3) Left leg weakness: (4) HTN (hypertension): Total Time Total Time Spent Total Time Spent (In Minutes): 45 Total Time Includes: Examination of the Patient, Discharge Planning, Medication Reconciliation and Communication With Other Providers Discharge Plan Discharge Items Patient Disposition: Home - Self-Care Reason For Visit: STROKE SX Discharge Diagnosis: Acute Stroke Condition on Discharge: Good Activity: As commented below Activity Comment: Plan on use of walker to help reduce chances of falls. Lifting: Gradually increase as tolerated Bathing: No limitations Sexual Activity: Wait until after follow-up appointment Exercise/Sports: Wait until after follow-up appointment Driving/Machine Use: Resume 3 days after discharge Weightbearing: Full weightbearing Non-emergency contact: Primary Care Provider and Neurologist Call non-emergency contact if: you have any medication questions and your symptoms worsen Follow-up/Referrals: Rodney Christie MD [Physician] - (1 month) Dm Olson III, CRNP [Primary Care Provider] - Rodney Ann DO [Physician] - (1 week f/u) Diet: Heart Healthy Addtl Attending Provider Instructions: During her hospital stay a diagnosis of acute stroke was obtained. To the weakness in the left they recommend physical therapy, home health. This service will be arranged on your discharge. Recommend availability of walker due to your drifting to the left and to help prevent falls. To further evaluate for possible causes the stroke the patient will have an event monitor placed to evaluate for any cardiac disease and arrhythmia. It is important that you maintain medications including the aspirin 81 mg daily and the atorvastatin 40 mg daily. Both these medications been sent to your local pharmacy. The medications will help reduce her risks of future strokes. During her hospital stay her blood pressure was elevated, he will be placed on a low dose of blood pressure, amlodipine, medications. We will recheck your blood pressure at your follow-up appointment. If he have any return of symptoms concerns for stroke worsening symptoms please call our office or go to the emergency room for acute evaluation. Pending Studies at Discharge: Yes Studies:: Future Holter monitor Stand-Alone Forms: My [facility] [email or web address], Work/School Release (Inpt), Smoking Cessation Medications and DC Order Prescriptions: New atorvastatin 40 mg Tablet 40 mg PO QAM Qty: 30 RF: 0 aspirin 81 mg Tablet,Delayed Release (Dr/Ec) 81 mg PO QAM Qty: 30 RF: 0 amlodipine 5 mg tablet 5 mg PO DAILY Qty: 30 RF: 1 No Action No Known Home Medications RF: 0 Discharge Orders: Discharge Order (Routine); Ordered 04/20/20 Ordered By: Rodney Ann Admission Data Admit Date/Time: 04/19/20 21:32 Attending Provider: Rodney Ann Admit Provider: Moriah Mabry Primary Care Provider: Dm Olson III Other Providers: Ashkan Acevedo ; Rodney Christie ; [facility] Other Interventions: Discharge Summary Assessment (RN) Last Done: 04/20/20 14:35 Coding Level of Care Code D/C Day Management >30 mins Diagnoses Acute ischemic right EDYTA stroke I63.521 Fall W19.XXXA Left leg weakness R29.898 HTN (hypertension) I10 Time Spent (min) 45
--- NOTE | 2020-04-20 22:31 | Billing Data ---
Date of Service April 20, 2020 Coding Level of Care Code 57987 OBS Care - Level 3
--- NOTE | 2020-04-21 22:06 | Emergency Department Note ---
Impression & Plan Symptoms of cerebrovascular accident, JOSSY (cerebral atherosclerosis), Hypertensive urgency ED Provider Note NAME: ADALID MENDOZA AGE: 65 SEX: M ARRIVES VIA: Walk-In INFORMANT: Patient, ED PROVIDER(S): Emilie Reid MD CHIEF COMPLAINT: Dizzy, left leg weak PLAN: Disposition: Inpatient Condition: Fair Referral: Hospitalist, telestroke consult MEDICAL DECISION MAKING: This patient was evaluated and was noted to be markedly hypertensive. Patient's physical examination reveals no focal neurologic deficit however the patient was not ambulated at the bedside. IV access was obtained and laboratory work was drawn. Patient did receive 10 mg of IV labetalol. CT/CTA of the head and neck were performed and are significant for cerebral atherosclerosis as below. There does not appear to be an acute infarct. The telestroke physician was consulted, Dr. Garcia at [facility] and the findings were reviewed. She recommended 324 mg of aspirin and further stroke evaluation. Patient was informed of the findings. Case was discussed with the hospitalist, Dr. Murphy, who will evaluate the patient for further management. Patient is aware of the plan and agrees. Triage Nursing notes reviewed. Prior medical records reviewed Vital Signs: reviewed and remarkable for marked hypertension Differential diagnosis: Infection, dehydration, metabolic abnormality, hypo/hyperglycemia, electrolyte disturbance, anemia, hypoxia, cardiac sources, intracerebral event, toxicologic, neurologic, as well as other pathologies. ER treatment provided: IV labetalol P.o. aspirin Diagnostics interpreted by me: ECG: NSR at 77 bpm with left atrial enlargement. No PVC, no PAC. Normal axis. Normal ST segment. Cardiac Monitoring: An order for cardiac monitoring was placed and the patient was noted to be in a normal sinus rhythm at 79 bpm. Laboratory studies: See below Imaging studies: CT OF THE HEAD WITHOUT CONTRAST CLINICAL HISTORY: Stroke Like Symptoms COMPARISON STUDY: No previous studies for comparison. CT DOSE: TECHNIQUE: Helical axial images of the head were obtained without IV contrast. Automated exposure control was utilized for the study. A dose lowering technique was utilized adhering to the principles of ALARA. FINDINGS: No acute intracranial hemorrhage, midline shift or mass effect is present. The ventricular system is unremarkable. Mild white matter hypodensities favor small vessel disease. The basal cisterns are patent. No extra-axial collections are present. There are no findings to suggest acute dural sinus thrombosis or acute territorial infarct. No significant calvarial abnormalities are present. Visualized portions of the sinuses and mastoid air cells are clear. IMPRESSION: No acute intracranial findings. ACT 112: Negative or not required by law. Electronically signed by: Geovany Hernández M.D. 04/19/2020 6:17 PM Dictated: 04/19/201814Transcribed: 04/19/201814 CTA ANGIOGRAPHY OF THE HEAD CLINICAL HISTORY: Stroke Like Symptoms. COMPARISON STUDY: No previous studies for comparison. TECHNIQUE: Helical axial images of the head were obtained following uneventful intravenous administration of 117 cc of Optiray 320. Sagittal and coronal reconstructions were viewed as well as maximal intensity projections on an independent 3-D workstation. Automated exposure control was utilized for the study. A dose lowering technique was utilized adhering to the principles of ALARA. FINDINGS: The bilateral M1 and M2 segments are patent. The bilateral A1 segments are patent. There is multifocal occlusion of the right A2 segment. There is moderate to severe stenosis of the left A2 segment. The posterior circulation is largely supplied by the anterior circulation with persistence of the left posterior cerebral artery and a large right posterior communicating artery. Note is made of occlusion with distal reconstitution versus severe short segment stenosis with of the right posterior cerebral artery shown on axial image 78 of 250. In addition, there is moderate stenosis of the more proximal aspect of this vessel. Note is made of severe stenosis of the left posterior cerebral artery. No acute intracranial hemorrhage is present. Brain volume is normal. Ventricular system is normal. Basilar cisterns are patent. 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 There is no intracranial aneurysm. There is moderate stenosis of the basilar artery. IMPRESSION: 1. 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 This finding is age indeterminate and may be acute. 2. Occlusion versus severe short segment stenosis of the right posterior cerebral artery. 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 3. Moderate stenosis of the basilar artery. ACT 112: Negative or not required by law. Electronically signed by: Geovany Hernández M.D. 04/19/2020 6:33 PM Dictated: 04/19/201825Transcribed: 04/19/201825 CT ANGIOGRAPHY OF THE NECK WITH CONTRAST CLINICAL HISTORY: Stroke Like Symptoms COMPARISON STUDY: No previous studies for comparison. Technique: CT angiography of the carotid and vertebral arteries was obtained using Optiray 320 IV and 3D reconstruction on an independent workstation. NASCET criteria was utilized. Automated exposure control was utilized for the study. A dose lowering technique was utilized adhering to the principles of ALARA. CT DOSE: 1094.39 mGy.cm Findings: The bilateral common carotid and cervical internal carotid arteries are patent. There is mild plaque within the proximal right internal carotid artery. This results in no stenosis. No dissection within the major vessels of the neck is noted. The left vertebral artery is dominant. There is moderate to severe stenosis at the origin of the left vertebral artery. 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 This vessel is patent. CTA of the head will be reported separately. Lung apices are clear. There is no cervical lymphadenopathy. No acute cervical spine fracture is present. IMPRESSION: 1. No stenosis within the bilateral common carotid and cervical internal carotid arteries. 2. Moderate to severe stenosis at the origin of the left vertebral artery. Dominant left vertebral artery. Diminutive right vertebral artery. ACT 112: Negative or not required by law. Electronically signed by: Geovany Hernández M.D. 04/19/2020 6:26 PM Dictated: 04/19/201821Transcribed: 04/19/201821 [place]ation(s[place] [place]: 65/M arrives for evaluation of acute onset dizziness that occurred around 630 this morning. Patient noticed it upon awakening. He has been walking "into things" and unable to walk in a straight line for most of the day. He states he has been running into things mostly with his left leg. He has been feeling nauseated but has not vomited. Patient denies any confusion, visual changes or speech deficits. He denies any upper extremity weakness. Patient denies any history of diabetes, stroke or smoking. He states he has not seen a physician in many years with the exception of a work physical. He also states "I do not take pills." He denies any recent Covid exposures, fever, chill, chest pain or shortness of breath. ROS: See above HPI for pertinent positives & negatives. A total of 10 systems reviewed and were otherwise negative. PAST MEDICAL HISTORY:See Below PAST SURGICAL HISTORY:See Below FAMILY HISTORY:See Below SOCIAL HISTORY:See Below HOME MEDICATIONS:See Below ALLERGIES:See Below VITALS:See Below PHYSICAL EXAMINATION: Vital signs reviewed. Noted to be markedly hypertensive. General: Well-appearing 65 yo male, in no significant distress. HEENT: No scleral icterus, PERRLA, neck supple. Atraumatic. Cardiovascular: Regular rate and rhythm, no extra sounds. Pulmonary: Clear to auscultation bilaterally, normal work of breathing. Abdomen: Soft, nontender, nondistended, positive bowel sounds. Musculoskeletal: Atraumatic, no peripheral edema. Neurologic: Patient awake alert and oriented x 3, full strength in all 4 extremities. Cranial nerves 2 through 12 grossly intact. Negative pronator drift, intact [id number]. Skin: Warm, dry, no rash I have personally spent greater than 35 minutes of critical care time [facility] the [facility]. This includes bedside care, interpretation of diagnostic studies, and testing, discussion with consultants, patient, and family members, and other required patient management activities. This 35 minutes is in excess of all separately billable procedures. Emilie Reid MD Past Med/Surg History Surgical History History of open reduction and internal fixation (ORIF) procedure humerus Family History Father Obesity Heart disease Stroke Myocardial infarction Peripheral vascular disease Grandfather Peripheral vascular disease Social History Smoking Status: Never smoker Tobacco Type: Smokeless Tobacco (Dip or Chew) Age Started Using Tobacco: 12; Second Hand Exposure: No; Hx Alcohol Use: Yes Alcohol type: beer Hx Substance Use: No Preferred Language: Macedonian Communication Ability: Effective [employer] Member Required: No Beliefs That Will Affect Care: None marital status: Current Living Situation: Spouse Feels Safe at Home: Yes caffeine: Yes Assistive Devices: Glasses Allergies Allergies Allergy/AdvReac Type Severity Reaction Status Date / Time No Known Allergies Allergy Unknown NONE Unverified 04/19/20 19:16 Home Meds Home Medications Medication Instructions Recorded Confirmed No Known Home Medications 03/06/19 04/19/20 Previous Rx's Medication Instructions Recorded amlodipine 5 mg PO DAILY #30 tab 04/20/20 aspirin 81 mg PO QAM #30 tab 04/20/20 atorvastatin 40 mg PO QAM #30 tab 04/20/20 Results & Data (ED) Home Medications Current Medication List: was personally reviewed by me Laboratory Data Attestation: I reviewed the patient's lab results. Result diagrams: 04/19/20 16:32 04/20/20 05:40 Lab Results 04/19/20 04/19/20 04/19/20 Range/Units 16:32 16:32 16:32 WBC 7.54 (4.8-10.8) K/uL RBC 5.25 (4.7-6.1) M/uL Hgb 17.3 (14.0-18.0) g/dL Hct 50.1 (42-52) % MCV 95.4 (80-100) fL MCH 33.0 (25-34) pg MCHC 34.5 (32-36) g/dL RDW Std Deviation 44.5 (36.4-46.3) fL RDW Coeff of Debbie 12.8 (11.5-14.5) % Plt Count 201 (130-400) K/uL MPV 10.8 H (7.4-10.4) fL Immature Gran % (Auto) 0.1 % Neut % (Auto) 69.8 % Lymph % (Auto) 19.1 % [place] % (Auto) 9.3 % Eos % (Auto) 1.2 % Baso % (Auto) 0.5 % Neut # (Auto) 5.26 (1.4-6.5) K/uL Lymph # (Auto) 1.44 (1.2-3.4) K/uL [place] # (Auto) 0.70 H (0.11-0.59) K/uL Eos # (Auto) 0.09 (0-0.5) K/uL Baso # (Auto) 0.04 (0-0.2) K/uL Immature Gran # (Auto) 0.01 (0.00-0.02) K/uL PT 10.5 (9.0-12.0) Seconds INR 1.0 (0.9-1.1) APTT 25.6 (21.0-31.0) Seconds PTT Ratio 0.9 Sodium 140 (136-145) mmol/L Potassium 4.1 (3.5-5.1) mmol/L Chloride 109 H (98-107) mmol/L Carbon Dioxide 28 (21-32) mmol/L Anion Gap 3.0 (3-11) BUN 17 (7-18) mg/dl Creatinine 1.34 (0.6-1.4) mg/dl Est Cr Clr Drug Dosing 52.8 ml/min Est GFR ( Amer) 64.9 Est GFR (Non-Af Amer) 56.0 BUN/Creatinine Ratio 12.5 (10-20) Glucose 94 (70-99) mg/dl Estimat Average Glucose mg/dl Hemoglobin A1c (4.5-5.6) % Calcium 8.8 (8.5-10.1) mg/dl Magnesium 2.5 H (1.8-2.4) mg/dl Total Bilirubin 0.6 (0.2-1) mg/dl AST 16 (15-37) U/L ALT 32 (12-78) U/L Alkaline Phosphatase 71 (45-117) U/L Troponin I < 0.015 (0-0.045) ng/ml Total Protein 7.7 (6.4-8.2) gm/dl Albumin 4.0 (3.4-5.0) gm/dl Globulin 3.7 (2.5-4.0) gm/dl Albumin/Globulin Ratio 1.1 (0.9-2) Triglycerides (0-150) mg/dl Cholesterol (0-200) mg/dl LDL Cholesterol, Calc mg/dl VLDL Cholesterol, Calc mg/dl HDL Cholesterol mg/dl Cholesterol/HDL Ratio COVID-19 Eval Order SARS-CoV-2, RNA, NAAT (NEGATIVE) 04/19/20 04/19/20 04/19/20 Range/Units 16:32 16:32 17:12 WBC (4.8-10.8) K/uL RBC (4.7-6.1) M/uL Hgb (14.0-18.0) g/dL Hct (42-52) % MCV (80-100) fL MCH (25-34) pg MCHC (32-36) g/dL RDW Std Deviation (36.4-46.3) fL RDW Coeff of Debbie (11.5-14.5) % Plt Count (130-400) K/uL MPV (7.4-10.4) fL Immature Gran % (Auto) % Neut % (Auto) % Lymph % (Auto) % [place] % (Auto) % Eos % (Auto) % Baso % (Auto) % Neut # (Auto) (1.4-6.5) K/uL Lymph # (Auto) (1.2-3.4) K/uL [place] # (Auto) (0.11-0.59) K/uL Eos # (Auto) (0-0.5) K/uL Baso # (Auto) (0-0.2) K/uL Immature Gran # (Auto) (0.00-0.02) K/uL PT (9.0-12.0) Seconds INR (0.9-1.1) APTT (21.0-31.0) Seconds PTT Ratio Sodium (136-145) mmol/L Potassium (3.5-5.1) mmol/L Chloride (98-107) mmol/L Carbon Dioxide (21-32) mmol/L Anion Gap (3-11) BUN (7-18) mg/dl Creatinine (0.6-1.4) mg/dl Est Cr Clr Drug Dosing ml/min Est GFR ( Amer) Est GFR (Non-Af Amer) BUN/Creatinine Ratio (10-20) Glucose (70-99) mg/dl Estimat Average Glucose 91 mg/dl Hemoglobin A1c 4.8 (4.5-5.6) % Calcium (8.5-10.1) mg/dl Magnesium (1.8-2.4) mg/dl Total Bilirubin (0.2-1) mg/dl AST (15-37) U/L ALT (12-78) U/L Alkaline Phosphatase (45-117) U/L Troponin I (0-0.045) ng/ml Total Protein (6.4-8.2) gm/dl Albumin (3.4-5.0) gm/dl Globulin (2.5-4.0) gm/dl Albumin/Globulin Ratio (0.9-2) Triglycerides 289 H (0-150) mg/dl Cholesterol 271 H (0-200) mg/dl LDL Cholesterol, Calc 149 mg/dl VLDL Cholesterol, Calc 58 mg/dl HDL Cholesterol 64 mg/dl Cholesterol/HDL Ratio 4 [facility]-2, RNA, NAAT (NEGATIVE) 04/19/20 Range/Units 17:12 WBC (4.8-10.8) K/uL RBC (4.7-6.1) M/uL Hgb (14.0-18.0) g/dL Hct (42-52) % MCV (80-100) fL MCH (25-34) pg MCHC (32-36) g/dL RDW Std Deviation (36.4-46.3) fL RDW Coeff of Debbie (11.5-14.5) % Plt Count (130-400) K/uL MPV (7.4-10.4) fL Immature Gran % (Auto) % Neut % (Auto) % Lymph % (Auto) % [place] % (Auto) % Eos % (Auto) % Baso % (Auto) % Neut # (Auto) (1.4-6.5) K/uL Lymph # (Auto) (1.2-3.4) K/uL [place] # (Auto) (0.11-0.59) K/uL Eos # (Auto) (0-0.5) K/uL Baso # (Auto) (0-0.2) K/uL Immature Gran # (Auto) (0.00-0.02) K/uL PT (9.0-12.0) Seconds INR (0.9-1.1) APTT (21.0-31.0) Seconds PTT Ratio Sodium (136-145) mmol/L Potassium (3.5-5.1) mmol/L Chloride (98-107) mmol/L Carbon Dioxide (21-32) mmol/L Anion Gap (3-11) BUN (7-18) mg/dl Creatinine (0.6-1.4) mg/dl Est Cr Clr Drug Dosing ml/min Est GFR ( Amer) Est GFR (Non-Af Amer) BUN/Creatinine Ratio (10-20) Glucose (70-99) mg/dl Estimat Average Glucose mg/dl Hemoglobin A1c (4.5-5.6) % Calcium (8.5-10.1) mg/dl Magnesium (1.8-2.4) mg/dl Total Bilirubin (0.2-1) mg/dl AST (15-37) U/L ALT (12-78) U/L Alkaline Phosphatase (45-117) U/L Troponin I (0-0.045) ng/ml Total Protein (6.4-8.2) gm/dl Albumin (3.4-5.0) gm/dl Globulin (2.5-4.0) gm/dl Albumin/Globulin Ratio (0.9-2) Triglycerides (0-150) mg/dl Cholesterol (0-200) mg/dl LDL Cholesterol, Calc mg/dl VLDL Cholesterol, Calc mg/dl HDL Cholesterol mg/dl Cholesterol/HDL Ratio COVID-19 Eval Order SARS-CoV-2, RNA, NAAT NEGATIVE (NEGATIVE) Administered Medications Discontinued Medications Aspirin (Aspirin Chew 324 Mg) 324 mg PO NOW STA Stop: 04/19/20 19:01 Last Admin: 04/19/20 19:39 Dose: 324 mg Documented by: [id number] Aspirin (Aspirin 81 Mg Ectab) 81 mg PO [facility] Stop: 05/20/20 08:59 Last Admin: 04/20/20 08:30 Dose: 81 mg Documented by: [id number] Atorvastatin Calcium (Atorvastatin 40 Mg Tab) 40 mg PO [facility] Stop: 05/20/20 08:59 Last Admin: 04/20/20 08:31 Dose: 40 mg Documented by: [id number] Enoxaparin Sodium (Enoxaparin Inj 40 Mg/0.4 Ml Syr) 40 mg SQ Q24H [facility] Stop: 05/19/20 21:59 Last Admin: 04/19/20 23:46 Dose: 40 mg Documented by: [id number] Sodium Chloride (Nss 1000ml) 1,000 mls @ 50 mls/hr IV .Q20H [facility] Stop: 05/19/20 16:14 Last Admin: 04/20/20 14:43 Dose: Not Given Documented by: [id number] Admin: 04/19/20 16:29 Dose: 50 mls/hr Documented by: [id number] Ioversol (Optiray 320 125ml) 117 ml IV ONCE ONE Stop: 04/19/20 18:07 Last Admin: 04/19/20 18:06 Dose: 117 ml Documented by: [id number] Labetalol HCl (Labetalol Hcl Iv 5 Mg/Ml 20ml) 10 mg IV NOW STA Stop: 04/19/20 17:15 Last Admin: 04/19/20 17:26 Dose: 10 mg Documented by: [id number] Cosigned by: [id number] Discharge Plan Visit Data Chief Complaint: Weakness Stated Complaint: LEFT LEG IS WEAK ED Provider: Emilie Reid Discharge Problem: Symptoms of cerebrovascular accident, JOSSY (cerebral atherosclerosis), Hypertensive urgency Patient Disposition: Admitted As Inpatient Condition: Good Discharge Instructions Interventions: ED Discharge Assessment Last Done: 04/19/20 22:03
== END 2020-04-20 16:05 | disposition home or self-care (01) ==
LOC: 2N 15:22 → ED 15:22 → SUATTDRO 21:32 → 2N 22:03